=== PATIENT | male | born 1985 | race Caucasian/White ===

== ENCOUNTER 2022-07-26 13:27 | Emergency (ER) | payer OTHER, BC ==
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
--- NOTE | 2022-07-26 14:34 | RAD REPORT ---
EXAM DESCRIPTION: Mavis Single View07/26/2022 2:05 pm CLINICAL HISTORY: Chest pain COMPARISON: none FINDINGS: The lungs appear clear of acute infiltrate. The heart is normal size IMPRESSION: No acute abnormalities displayed
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
[2022-07-26 15:02] VITALS: TEMP 98.7; O2SAT 100
[2022-07-26 15:03] VITALS: BP 120/84
== END 2022-07-26 14:55 | disposition home or self-care (01) ==
LOC: ER 13:27
DX: S00.03XA Contusion of scalp, initial encounter (principal); V49.49XA Driver injured in collision with other motor vehicles in traffic accident, initial encounter
CPT/HCPCS: 70450; 71045; 72125; 99284